=== PATIENT | female | born 1995 | race Caucasian/White ===

== ENCOUNTER 2021-09-20 09:11 | Outpatient (CLI) | payer OTHER, SELFPAY ==
[2021-09-20 10:52] LABS: Glucose 1 Hour PP 50gm Dose 105 mg/dL
== END 2021-09-20 09:12 | disposition home or self-care (01) ==
LOC: ANHLAB 09:18
PROVIDERS: Visit Provider Obstetrics & Gynecology
DX: O99.810 Abnormal glucose complicating pregnancy (principal); Z3A.00 Weeks of gestation of pregnancy not specified
CPT/HCPCS: 36415; 82947

== ENCOUNTER 2022-03-18 06:04 | Inpatient (IN) | payer OTHER, SELFPAY ==
[2022-03-18] VITALS (89 sets, daily range): BP systolic 92–142; BP diastolic 51–97; PULSE 80–141; RESP 16–18; TEMP 35.7–37.2; O2SAT 97–100; BMI 24.1
[2022-03-18] MEDS: LACTATED RINGERS 1,000 ML 125 ML IV CONT ×2 (07:14→10:18)
[2022-03-18] MEDS: OXYTOCIN 30 UNITS/NS 500 ML 30 UNITS/500 ML BAG 6 UNITS IV CONT (07:15)
--- NOTE | 2022-03-18 07:27 | P.HPUP_ITS ---
History and Physical Update Update Date/Time: 03/18/22 07:27 AROM - clear Primip induction elective., Short fe murs History and Physical has been reviewed, including an updated exam of the patient. There are NO changes in the patient's condition. Risks, benefits, and alternatives have been discussed and questions answered. Patient agrees to proceed with procedure.
--- NOTE | 2022-03-18 07:32 | LDADM ---
This patient, Es Cortes, was admitted to Labor/Delivery/Recovery 108 on 03/18/22 at 06:04. Plans for labor, pain management and were discussed with patient. Patient/family oriented to hospital policies and general routines including ID bracelet, bed and alarms, visiting hours, pain management, procedures, bathroom and other care routines, personal items, smoking policy, room service/diet and guest tray routines, security routines, and visiting hours. Patient/Family are encouraged to report perceived risks to care and to ask questions if they do not understand what they are told or what they should do. See OBIX for further documentation.
--- NOTE | 2022-03-18 07:41 | P.PNAN_ITS ---
Anes - Eval Pre Procedure Procedure: labor epidural Date/Time: 03/18/22 07:41 Surgeon: peter Preop Diagnosis: pain during labor Pre Op Diagnosis: Induction of Labor Patient Data Age: 27 Gender: F Height: Weight: Last Vital Signs Pulse 90 03/18/22 07:30 BP 116/78 03/18/22 07:30 Allergies Allergy/AdvReac Type Severity Reaction Status Date / Time No Known Allergies Allergy Verified 03/10/22 12:32 Home Medications Medication Instructions Recorded Confirmed Type ferrous sulfate 65 mg 03/10/22 History prenat.vits,santhosh,yxa-fjap-jlxku 1 tablet PO DAILY 03/10/22 03/10/22 History [ #2] Laboratory Tests 03/18/22 03/18/22 07:27 07:27 WBC Pending RBC Pending Hgb Pending Hct Pending MCV Pending MCH Pending MCHC Pending RDW Pending Plt Count Pending MPV Pending Immature Gran % (Auto) Pending Neut % (Auto) Pending Lymph % (Auto) Pending [place] % (Auto) Pending Eos % (Auto) Pending Baso % (Auto) Pending Lymph # (Auto) Pending [place] # (Auto) Pending Eos # (Auto) Pending Baso # (Auto) Pending Abs Immat Gran (auto) Pending Absolute Neuts (auto) Pending Absolute Nucleated RBC Pending Nucleated RBC % Pending RPR Pending Patient hx anesthesia problems: none Family hx anesthesia problems: none Results Review: All pre-operative results and documents have been reviewed as part of the pre-operative evaluation. [facility] Past Medical History Medical History (Updated 03/18/22 @ 07:41 by Hina Bernard CRNA) Intrauterine Family History Family History (Updated 03/10/22 @ 12:36 by Mateo Zambrano RN) Grandparent Hypothyroidism A-fib Hypertension Heart disease Acute myocardial infarction Cerebrovascular accident Mother Hypothyroidism Social History Social History Substance use: never Spiritual care concerns: No Exam Day of Procedure 03/18/22 07:41
[2022-03-18 07:44] LABS: Basophils Percent Auto 0.5 % (0.2-1.2); Eosinophils Percent Auto 0.5 % (0-4.4); Hematocrit 36.7 % (37.0-47.0); Hemoglobin 11.8 g/dL (12.0-15.0); Immature Granulocyte Absolute 0.03 K/mm3 (0.00-0.031); Immature Granulocyte Percent A 0.8 % (0-0.5); Lymphocytes Absolute Auto 0.33 K/mm3 (0.9-3.2); Lymphocytes Percent Auto 8.3 % (18.3-44.2); Mean Corpuscular HGB Conc 32.2 g/dl (32-36); Mean Corpuscular Hemoglobin 29.4 pg (26-34); Mean Corpuscular Volume 91.3 fl (80-100); Mean Platelet Volume 9.7 fl (7.4-10.4); Monocytes Absolute Auto 0.3 K/mm3 (0.1-0.6); Monocytes Percent Auto 7.8 % (2.6-8.5); Neutrophils Absolute Auto 3.3 K/mm3 (1.3-6.7); Neutrophils Percent Auto 82.1 % (45.5-73.1); Platelet Count Result 95 k/mm3 (150-375); Red Blood Count 4.02 M/mm3 (4.2-5.4); Red Cell Distribution Width 16.4 % (11.5-14.5)
[2022-03-18 11:53] LABS: Rapid Plasma Reagin Non-Reactive (NonReactive)
--- NOTE | 2022-03-18 13:01 | PM.OBPRVD ---
OB - Delivery Note Procedure Delivery date: 03/18/22 Procedure: Delivery monitor: External FHT and External Uterine Route of delivery: Laceration Description: Periurethral and Perineal - 2nd Degree Delivery repair: vicryl Quantitative Blood Loss (ml): 210 Anesthesia type: Epidural Baby Date of : 03/18/22 Time of : 12:33 Weeks of gestation at delivery: 39 Infant gender: Male presentation: vertex score one minute: 8 score five minutes: 9
[2022-03-18] MEDS: OXYTOCIN 30 UNITS/NS 500 ML 30 UNITS/500 ML BAG 125 UNITS IV CONT (13:13)
[2022-03-18] MEDS: WITCH HAZEL 40 PADS 1 PAD TOPICAL (15:24)
[2022-03-18] MEDS: BENZOCAINE 20% AER SPR (*SP) 56 GM CAN 1 SPRAY TOPICAL (15:25)
[2022-03-18] MEDS: IBUPROFEN 600 MG TABLET PO (17:35)
[2022-03-18] MEDS: ACETAMINOPHEN 325 MG TABLET 650 MG PO (23:24)
[2022-03-19] MEDS: IBUPROFEN 600 MG TABLET PO ×3 (03:25→19:43)
[2022-03-19 03:46] VITALS: BP 109/71; BP 96/56; PULSE 104; RESP 18; TEMP 37.3
[2022-03-19 04:19] LABS: Hematocrit 29.6 % (37.0-47.0); Hemoglobin 9.7 g/dL (12.0-15.0)
[2022-03-19 08:15] VITALS: BP 98/64; PULSE 96; RESP 18; TEMP 36.8; O2SAT 99
--- NOTE | 2022-03-19 08:18 | PM.OBPNVD ---
OB - PN: Subj Subjective Date/time seen: 03/19/22 08:18 Patient comments: no complaints, pain well controlled, tolerating diet and flatus present OB - PN: Obj Data Labs CBC & Chem 7: 03/19/22 03:08 Labs: Laboratory Results - last 24 hr 03/18/22 03/18/22 03/19/22 07:27 07:27 03:08 Hgb 9.7 L Hct 29.6 L RPR Non-reactive Blood Type A Positive Antibody Screen Negative OB - PN A/P Plan day: 1 Comments: Post Op LTCS - no problems, routine recovery Time Spent With Patient Time: Total time spent is greater than 50% in coordination of care (as documented) at patient's floor/unit and/or counseling patient: Exam Const: General: cooperative, healthy appearing, comfortable and no acute distress Resp: Auscultation: no crackles, no rales, no rhonchi and no wheezes Cardio: Rhythm: regular rhythm Heart sounds: no click and no murmurs GI: Inspection: non-distended Auscultation: normal bowel sounds Extrem: General: normal to inspection, no pedal edema and no calf tenderness
[2022-03-19] MEDS: ACETAMINOPHEN 325 MG TABLET 650 MG PO (08:33)
[2022-03-19] MEDS: DOCUSATE SODIUM 100 MG CAPSULE PO (08:34)
[2022-03-19] MEDS: BENZOCAINE 20% AER SPR (*SP) 56 GM CAN 1 SPRAY TOPICAL (08:34)
[2022-03-19] MEDS: WITCH HAZEL 40 PADS 1 PAD TOPICAL (08:35)
[2022-03-19 09:48] VITALS: PULSE 96; RESP 18; O2SAT 99
--- NOTE | 2022-03-19 10:30 | WPDANLDPN2 ---
Anes-Prog Note L&D Date/Time: 03/19/22 10:30 Comfortable throughout: labor and delivery Neuraxial method: epidural Epidural/Spinal procedure site: clean & non-tender Neuro status: Neuro function grossly intact. Cardiovascular status: normal Respiratory status: normal Airway patency: baseline Mental status: baseline Post-Op hydration status: normal Vital Signs: Last Vital Signs Temp 36.8 C 03/19/22 08:15 Pulse 96 03/19/22 09:48 Resp 18 03/19/22 09:48 BP 98/64 L 03/19/22 08:15 Pulse Ox 99 03/19/22 09:48 Pain score (VAS): 2 I/O: Intake & Output 03/18/22 03/19/22 03/19/22 23:59 07:59 15:59 Intake Total 240 500 Balance 240 500 Post-procedural complaints: none Patient feedback: Patient satisfied with anesthetic care.
[2022-03-19 11:33] VITALS: BP 109/60; PULSE 99; RESP 16; TEMP 37.2; O2SAT 99
--- NOTE | 2022-03-19 13:30 | PC.NURSE ---
[id number] Breast pump provided prior to shift due to ineffective feedings and mother's preference. Instructions given on cleaning, care, usage, there should be no pain, pumping schedule (8 times in 24 hours with 1-2 times at night) for milk production, collection, and storage of human milk. Parents are encouraged to record pumping schedule on the feeding sheet. Patient was assessed for correct placement, flange size, to pump for comfort and nipple stretching/stimulation for adequate milk production. Mother voiced understanding of the education shared. Reported to the primary RN.
[2022-03-19 19:40] VITALS: BP 118/80; PULSE 109; RESP 18; TEMP 37.2
[2022-03-20] MEDS: IBUPROFEN 600 MG TABLET PO (04:58)
--- NOTE | 2022-03-20 06:30 | PC.NURSE ---
PT introductions made and plan of care discussed per post , pain management, breast pumping and bottle feeding, daily care activities and pending discharge to home. PT and spouse both received such instructions and no barriers to learning identified at this time. PT received instructions per one to one discussion, mom baby care guide and demonstrations this shift. PT verbalized understanding of such care.
--- NOTE | 2022-03-20 06:41 | PM.OBPNVD ---
OB - PN: Subj Subjective Date/time seen: 03/20/22 06:41 Patient comments: no complaints and pain well controlled OB - PN: Obj Data Labs CBC & Chem 7: 03/19/22 03:08 OB - PN A/P Plan day: 2 Plan: routine care Time Spent With Patient Time: Total time spent is greater than 50% in coordination of care (as documented) at patient's floor/unit and/or counseling patient: Review of Systems Review of Systems: All systems reviewed & are unremarkable except as noted in HPI and below Exam Const: General: cooperative, healthy appearing and comfortable
--- NOTE | 2022-03-20 06:42 | PM.OBDSVD ---
DS: Admitting Diagnosis Discharge Date 03/20/22 Admitting Diagnosis IUGR, IOL OB - DS: Summary OB Procedures : None OB Procedures Intrapartum: Spontaneous Vag Delivery OB Procedures: : None Time Spent with Patient Time attestation: Total time spent providing and/or coordinating discharge services: Discharge Plan Discharge Attending physician on discharge: Ginger Acuña Discharging Clinician: Gail Coy Patient Disposition: Home, Self-Care Activity: pelvic rest Diet: regular Patient Instructions: Antibiotic Form Stand Alone Forms: General Discharge Information Follow-up/Referrals: Ginger Acuña MD [Physician] - 4 Weeks Discharge Medications: Continued ferrous sulfate [Iron (ferrous sulfate)] 325 mg (65 mg iron) Tablet 65 mg PO BID RF: 0 #2 Tablet 1 tablet PO DAILY RF: 0 Date of admission: 03/18/22 06:04 Primary Care Provider: Omar,Garrett Admitting Provider: Ginger Acuña Attending physician on admission: Ginger Acuña Condition: Stable
[2022-03-20 08:15] VITALS: BP 112/65; PULSE 99; RESP 18; TEMP 36.4; O2SAT 99
[2022-03-20] MEDS: ACETAMINOPHEN 325 MG TABLET 650 MG PO (09:44)
[2022-03-20] MEDS: DOCUSATE SODIUM 100 MG CAPSULE PO (09:45)
[2022-03-20] MEDS: POLYSACCHARIDE IRON COMPLEX 150 MG CAPSULE PO (09:45)
[2022-03-20] MEDS: MULTIVIT/MIN/PREN/FOL AC/IRON TABLET 1 TAB PO (09:45)
--- NOTE | 2022-03-20 11:30 | PC.NURSE ---
PT received discharge instructions per protocol and verbalized understanding of such care
--- NOTE | 2022-03-20 12:00 | PC.NURSE ---
PT discharged to home ambulatory accompanied by spouse and to waiting car. follow up appts confirmed
--- NOTE | 2022-03-20 12:00 | PC.NURSE ---
PT discharged to home ambulatory accompanied by spouse and to waiting car. follow up appts confirmed
--- NOTE | 2022-03-20 12:00 | PC.NURSE ---
Infant discharged to home via safety seat accompanied by both parents and taken to waiting car. Follow up appts confirmed
--- NOTE | 2022-03-20 12:29 | PC.NURSE ---
[phone] Mother led the conversation with her experience and plan to feed her so far and her ability to pump and feed her . Mother is pumping 20 mls at the last pumping session. Reminded parents to use good handwashing technique to prevent infection. Mother is feeding appropriately for growth of and understands stimulating to eat if needed. Infant has had appropriate feedings in the last 24 hours meets the outcomes for weight, output and jaundice at this time. Mother states she is confident to continue pumping and bottle feeding her at home or when to call for assistance and denies any additional assistance or education at this time. Reviewed patient's Spectra pump and went over basics and encouraged reviewing the website for her personal pump, there should be no pain, flange proper fitting reviewed. Reinforced understanding of milk production, transition of milk, signs of adequate intake, prevention/relief of engorgement, responsive after visualizing feeding cues, pumping 8 times in 24 hours with 1-2 times at night, community resources, medication information reviewed per [employer] and when to call a provider using the resource of the mom and baby guide/[facility] website. Mother voiced understanding of the education shared. Reported to the primary RN.
[2022-03-21 08:50] VITALS: BP 117/78; PULSE 92; RESP 20; TEMP 36.9; O2SAT 98
== END 2022-03-20 12:00 | disposition home or self-care (01) | DRG 807 ==
LOC: ANHLDR 12:47 → ANHOB2 19:27
PROVIDERS: Admitting Provider Obstetrics & Gynecology; PCP Internal Medicine; Visit Provider Obstetrics & Gynecology
DX: O36.5930 Maternal care for other known or suspected poor fetal growth, third trimester, not applicable or unspecified (principal); Z37.0 Single live birth; O76 Abnormality in fetal heart rate and rhythm complicating labor and delivery; O32.6XX0 Maternal care for compound presentation, not applicable or unspecified; O70.1 Second degree perineal laceration during delivery; Z3A.39 39 weeks gestation of pregnancy
CPT/HCPCS: 36415; 85014; 85018; 85025; 86592; 86850; 86900; 86901; A9270; J2590; J2795; J7120

== ENCOUNTER 2023-11-24 04:54 | Inpatient (IN) | payer OTHER, SELFPAY ==
[2023-11-24] VITALS (124 sets, daily range): BP systolic 81–127; BP diastolic 46–83; PULSE 66–151; RESP 16–18; TEMP 36.3–37.1; O2SAT 97–100; BMI 26.7
--- NOTE | 2023-11-24 05:18 | LDADM ---
This patient, Es Cortes, was admitted to Labor/Delivery/Recovery 103 on 11/24/23 at 04:54. Plans for labor, pain management and were discussed with patient. Patient/family oriented to hospital policies and general routines including ID bracelet, bed and alarms, visiting hours, pain management, procedures, bathroom and other care routines, personal items, smoking policy, room service/diet and guest tray routines, security routines, and visiting hours. Patient/Family are encouraged to report perceived risks to care and to ask questions if they do not understand what they are told or what they should do. See OBIX for further documentation.
[2023-11-24] MEDS: LACTATED RINGERS 1,000 ML 125 ML IV CONT ×3 (05:32→11:13)
[2023-11-24 05:33] LABS: Basophils Percent Auto 0.4 % (0.2-1.2); Eosinophils Absolute Auto 0.2 K/mm3 (0-0.3); Eosinophils Percent Auto 2.1 % (0-4.4); Hematocrit 31.2 % (37.0-47.0); Hemoglobin 9.6 g/dL (12.0-15.0); Immature Granulocyte Absolute 0.08 K/mm3 (0.00-0.031); Lymphocytes Absolute Auto 1.72 K/mm3 (0.9-3.2); Lymphocytes Percent Auto 21.3 % (18.3-44.2); Mean Corpuscular HGB Conc 30.8 g/dl (32-36); Mean Corpuscular Hemoglobin 26.3 pg (26-34); Mean Corpuscular Volume 85.5 fl (80-100); Mean Platelet Volume 10.1 fl (7.4-10.4); Monocytes Absolute Auto 0.6 K/mm3 (0.1-0.6); Monocytes Percent Auto 6.9 % (2.6-8.5); Neutrophils Absolute Auto 5.5 K/mm3 (1.3-6.7); Neutrophils Percent Auto 68.3 % (45.5-73.1); Platelet Count Result 234 k/mm3 (150-375); Red Blood Count 3.65 M/mm3 (4.2-5.4); Red Cell Distribution Width 15.2 % (11.5-14.5); White Blood Count 8.1 K/mm3 (4.5-10.0)
[2023-11-24] MEDS: OXYTOCIN 30 UNITS/NS 500 ML 30 UNITS/500 ML BAG IV CONT (05:33)
--- NOTE | 2023-11-24 06:23 | WPDANESEPP ---
Anes - Eval Pre Procedure Procedure: labor epidural Date/Time: 11/24/23 06:23 Surgeon: peter Preop Diagnosis: pain during labor Pre Op Diagnosis: IOL Patient Data Age: 28 Gender: F Height: Weight: Last Vital Signs Pulse 105 H 11/24/23 06:00 BP 107/68 11/24/23 06:00 O2 Del Method Room Air 11/24/23 05:15 Allergies Allergy/AdvReac Type Severity Reaction Status Date / Time No Known Allergies Allergy Verified 11/24/23 05:36 Home Medications Medication Instructions Recorded Confirmed Type ferrous sulfate 325 mg (65 mg 65 mg PO BID 03/10/22 11/05/23 History iron) tablet (Iron (ferrous sulfate)) prenat.vits,santhosh,hak-ynze-pyhfh 1 tablet PO DAILY 03/10/22 11/24/23 History Laboratory Tests 11/24/23 05:05 WBC 8.1 K/mm3 (4.5-10.0) RBC 3.65 L M/mm3 (4.2-5.4) Hgb 9.6 L g/dL (12.0-15.0) Hct 31.2 L % (37.0-47.0) MCV 85.5 fl (80-100) MCH 26.3 pg (26-34) MCHC 30.8 L g/dl (32-36) RDW 15.2 H % (11.5-14.5) Plt Count 234 D k/mm3 (150-375) MPV 10.1 fl (7.4-10.4) Immature Gran % (Auto) 1.0 H % (0-0.5) Neut % (Auto) 68.3 % (45.5-73.1) Lymph % (Auto) 21.3 % (18.3-44.2) [place] % (Auto) 6.9 % (2.6-8.5) Eos % (Auto) 2.1 % (0-4.4) Baso % (Auto) 0.4 % (0.2-1.2) Lymph # (Auto) 1.72 K/mm3 (0.9-3.2) [place] # (Auto) 0.6 K/mm3 (0.1-0.6) Eos # (Auto) 0.2 K/mm3 (0-0.3) Baso # (Auto) 0.0 K/mm3 (0.0-0.1) Abs Immat Gran (auto) 0.08 H K/mm3 (0.00-0.031) Absolute Neuts (auto) 5.5 K/mm3 (1.3-6.7) Absolute Nucleated RBC 0.0 K/mm3 (0.0-0.012) Nucleated RBC % 0.0 % (0.0-0.2) RPR Pending Patient hx anesthesia problems: none Family hx anesthesia problems: none Results Review: All pre-operative results and documents have been reviewed as part of the pre-operative evaluation. [facility] Past Medical History Medical History (Updated 03/18/22 @ 07:41 by Hina Bernard CRNA) Intrauterine Family History Family History (Updated 11/05/23 @ 15:35 by Arin Freeman RN) Grandparent Acute myocardial infarction A-fib Heart disease Hypothyroidism Hypertension Cerebrovascular accident Mother Hypothyroidism Hypertension Father Hypertension Social History Social History Smoking status: Never smoker Second hand tobacco smoke exposure: No Substance use: never Do You Feel Safe in your Home?: Yes Lack of Transportation: No Lack of Food: Never True Current Housing: I Have Housing Concerned About Future Housing: No Difficulty Paying Gas/Electric Bills: No Difficulty Paying for Meds: No Currently Unemployed: No Education: Master's Degree or Higher Difficulty w/ Childcare or Family Care: No Spiritual care concerns: No Exam Day of Procedure 11/24/23 06:23
[2023-11-24] MEDS: CALCIUM CARBONATE (TUMS) 500 MG (200 MG ELEMENTAL) PO (08:10)
--- NOTE | 2023-11-24 08:38 | WPDOBADMIT ---
Obstetrics - Admit Note Admission Note: record reviewed. No pertinent additions to the history and/or any subsequent changes in the physical findings that are not consistent with the expected course of the were found. Additions to the history and/or subsequent changes in the physical findings follow. IOL /-2 large amount of clear, odorless fluid, anticipate vaginal delivery
[2023-11-24 09:08] LABS: Rapid Plasma Reagin Non-Reactive (NonReactive)
[2023-11-24] MEDS: FAMOTIDINE 20 MG/2 ML VIAL IV PUSH (12:32)
--- NOTE | 2023-11-24 14:13 | PM.OBPRVD ---
OB - Vaginal Delivery Note Procedure Delivery date: 11/24/23 Induction method: AROM and Per Pitocin Protocol Route of delivery: Episiotomy description: None Laceration Description: Perineal - 2nd Degree Delivery repair: vicryl Specimen: No Quantitative Blood Loss (ml): 400 Anesthesia type: Epidural Disposition: Floor Complications: No immediate complications [place] Baby Date of : 11/24/23 Time of : 13:58 Weeks of gestation at delivery: 40 Infant gender: Female presentation: vertex position: Right Occiput Anterior Placenta delivery description: Spontaneous Cord Vessel Description: 3 Vessels, Nuchal Cord, Loose and Reduced score one minute: 8 score five minutes: 9 Narrative: mother and baby skin to skin, in stable condition
[2023-11-24] MEDS: OXYTOCIN 30 UNITS/NS 500 ML 30 UNITS/500 ML BAG 125 UNITS IV CONT (14:48)
[2023-11-24] MEDS: COSYNTROPIN 0.25 MG/ML VIAL 1 MG IV PUSH (14:54)
[2023-11-24] MEDS: ACETAMINOPHEN 325 MG TABLET 650 MG PO (16:00)
[2023-11-24] MEDS: WITCH HAZEL 40 PADS 1 PAD TOPICAL (16:20)
[2023-11-24] MEDS: BENZOCAINE 20% AER SPR (*SP) 56 GM CAN 1 SPRAY TOPICAL (16:20)
--- NOTE | 2023-11-24 16:38 | OBPPTRN ---
Patient transferred to post room #284 via Wheelchair. Support person present. Oriented to unit, room, information board, rooming in, admission packet and security measures. Patient verbalizes understanding.
[2023-11-24] MEDS: POLYSACCHARIDE IRON COMPLEX 150 MG CAPSULE PO (17:38)
[2023-11-24] MEDS: DOCUSATE SODIUM 100 MG CAPSULE PO (17:38)
[2023-11-24] MEDS: IBUPROFEN 600 MG TABLET PO (18:45)
[2023-11-25] MEDS: ACETAMINOPHEN 325 MG TABLET 650 MG PO ×3 (00:30→22:02)
[2023-11-25 03:45] VITALS: BP 101/63; PULSE 88; RESP 16; TEMP 36.3; O2SAT 100
[2023-11-25 04:39] LABS: Hematocrit 23.8 % (37.0-47.0); Hemoglobin 7.3 g/dL (12.0-15.0)
[2023-11-25] MEDS: IBUPROFEN 600 MG TABLET PO ×2 (05:57→16:40)
[2023-11-25 08:00] VITALS: BP 111/60; PULSE 85; RESP 17; TEMP 36.5; O2SAT 99
--- NOTE | 2023-11-25 08:08 | PM.OBPNVD ---
OB - PN: Subj Subjective Date/time seen: 11/25/23 08:08 Patient comments: no complaints, pain well controlled, incisional pain, tolerating diet and flatus present OB - PN: Obj Data Labs 11/25/23 03:45 Labs: Laboratory Results - last 24 hr 11/24/23 11/25/23 05:05 03:45 Hgb 7.3 L Hct 23.8 L RPR Non-reactive OB - PN A/P Plan day: 1 Plan: routine care Comments: No problems, routine care Time Spent With Patient Time: Total time spent is greater than 50% in coordination of care (as documented) at patient's floor/unit and/or counseling patient: Exam Const: General: comfortable, no acute distress and alert Resp: Effort & Inspection: normal respiratory effort Auscultation: no crackles, no rales and no rhonchi Cardio: Rate: regular rate Heart sounds: no click, no murmurs and no rubs GI: Inspection: non-distended GI Palp: No Tenderness to palpation present (GI) Auscultation: normal bowel sounds Other: Incision - CDI Extrem: General: normal to inspection, no pedal edema and no calf tenderness
--- NOTE | 2023-11-25 09:15 | WPDANLDPN2 ---
Anes-Prog Note L&D Date/Time: 11/25/23 09:15 Comfortable throughout: labor and delivery Neuraxial method: epidural Epidural/Spinal procedure site: clean & non-tender Neuro status: Neuro function grossly intact. Cardiovascular status: normal Respiratory status: normal Airway patency: baseline Mental status: baseline Post-Op hydration status: normal Vital Signs: Last Vital Signs Temp 36.3 C L 11/25/23 03:45 Pulse 88 11/25/23 03:45 Resp 16 11/25/23 03:45 BP 101/63 11/25/23 03:45 Pulse Ox 100 11/25/23 03:45 O2 Del Method Room Air 11/25/23 03:45 Pain score (VAS): 10 I/O: Intake & Output 11/24/23 11/25/23 11/25/23 23:59 07:59 15:59 Intake Total 240 Balance 240 Post-procedural complaints: none Patient feedback: Patient satisfied with anesthetic care.
[2023-11-25] MEDS: POLYSACCHARIDE IRON COMPLEX 150 MG CAPSULE PO ×2 (09:54→16:40)
[2023-11-25] MEDS: MULTIVIT/MIN/PREN/FOL AC/IRON TABLET 1 TAB PO (09:54)
[2023-11-25] MEDS: DOCUSATE SODIUM 100 MG CAPSULE PO ×2 (09:54→16:40)
[2023-11-25 19:35] VITALS: BP 105/66; PULSE 79; RESP 18; TEMP 36.4
[2023-11-26] MEDS: IBUPROFEN 600 MG TABLET PO ×2 (05:30→11:32)
--- NOTE | 2023-11-26 07:37 | PM.OBPNVD ---
OB - PN: Subj Subjective Date/time seen: 11/26/23 07:37 Interval history: pp day 2 headache, anesthesia to come evaluate anemia, plan IV venofer prior to d/c OB - PN: Obj Data Labs 11/25/23 03:45 OB - PN A/P Plan day: 2 Plan: routine care and discharge home Comments: iron at home Time Spent With Patient Time: Total time spent is greater than 50% in coordination of care (as documented) at patient's floor/unit and/or counseling patient: Review of Systems Review of Systems: All systems reviewed & are unremarkable except as noted in HPI and below Exam Const: General: cooperative, healthy appearing and comfortable Resp: Effort & Inspection: normal respiratory effort Cardio: Rate: regular rate Skin: General skin exam: normal color Neuro: General: patient oriented x3 Psych: Appearance: grossly normal
--- NOTE | 2023-11-26 07:40 | PM.OBDSVD ---
DS: Admitting Diagnosis Discharge Date 11/26/23 Admitting Diagnosis IOL DS: Discharge Diagnosis Discharge Diagnosis (1) Vaginal delivery: Code(s): O80 - Encounter for full-term uncomplicated delivery Status: Acute OB - DS: Summary OB Procedures : None OB Procedures Intrapartum: Spontaneous Vag Delivery OB Procedures: : None Peripartum Data Laceration Description: Perineal - 2nd Degree Episiotomy description: None Time Spent with Patient Time attestation: Total time spent providing and/or coordinating discharge services: Discharge Plan Discharge Attending physician on discharge: Ginger Acuña Discharging Clinician: Gail Coy Patient Disposition: Home, Self-Care Activity: pelvic rest Diet: regular Patient Instructions: Antibiotic Form Stand Alone Forms: General Discharge Information Follow-up/Referrals: Gail Coy CNM [Certified Nurse Lieutenant Shift Supervisor] - 4 Weeks Discharge Medications: New ibuprofen 600 mg Tablet 600 mg PO Q6H PRN (Reason: Cramping) Qty: 30 0RF polysaccharide iron complex 150 mg iron Capsule 150 mg PO BIDWM Qty: 60 0RF Continued prenat.vits,santhosh,qtg-uoiz-wqctr Tablet 1 tablet PO DAILY Discontinued ferrous sulfate [Iron (ferrous sulfate)] 325 mg (65 mg iron) Tablet 65 mg PO BID Date of admission: 11/24/23 04:54 Primary Care Provider: Omar,Garrett Admitting Provider: Ginger Acuña Attending physician on admission: Ginger Acuña Condition: Stable
[2023-11-26 08:00] VITALS: PULSE 94; RESP 18; O2SAT 100
[2023-11-26 08:05] VITALS: BP 114/74; PULSE 94; RESP 18; TEMP 37.1; O2SAT 100
[2023-11-26] MEDS: DOCUSATE SODIUM 100 MG CAPSULE PO (08:09)
[2023-11-26] MEDS: MULTIVIT/MIN/PREN/FOL AC/IRON TABLET 1 TAB PO (08:09)
[2023-11-26] MEDS: POLYSACCHARIDE IRON COMPLEX 150 MG CAPSULE PO (08:09)
[2023-11-26] MEDS: ACETAMINOPHEN 325 MG TABLET 650 MG PO (08:12)
[2023-11-26] MEDS: IRON SUCROSE COMPLEX 400 MG in SODIUM CHLORIDE 0.9% IV 250 ML 108 MG IVPB (09:00)
--- NOTE | 2023-11-26 14:08 | WPDANESEBPP ---
Anes - Epidural Blood Patch PN Date/Time: 11/26/23 14:08 Consent: I have discussed with the patient/family/POA, the rationale of a lumbar epidural autologous blood patch for the treatment of post-dural puncture headache (spinal headache), including associated potential risks, benefits, complications and side effects. I have also discussed more conservative treatment options such as intravenous hydration, caffeine and non-prescription analgesics. The patient/family/POA, understand(s) and wish(es) to proceed with epidural autologous blood patch as treatment for the patient's post-dural puncture headache. Time-Out: A pre-procedural Time-Out was completed immediately before starting the procedure and confirmed: Patient Identification, Site, Procedure, Patient Position and the Availability of Requisite Equipment. Clinical Indications: PDPH Epidural Insertion Note Patient position: sitting Skin prep: chlorhexidine and sterile drape Needle: 18 gauge Tuohy-Schliff Technique: loss of resistance Skin anesthesia: lidocaine 1% Observations: tolerated well Complications: none
--- NOTE | 2023-11-26 14:50 | PC.NURSE ---
Patient viewed the discharge video Mother & Baby Care, The First Two Weeks . Patient was given the opportunity and encouraged to ask questions. Patient verbalized understanding of information shared and has been given the mother/baby guide for home reference.
--- NOTE | 2023-11-26 14:53 | PC.NURSE ---
Patient's discharge delayed due to pt needing blood patch. Anesthesia here to do blood patch at 1350. Per Anesthesia, pt must remain flat for 1.5-2 hrs. after procedure before discharging home
--- NOTE | 2023-11-26 15:55 | PC.NURSE ---
[id number] Mother led the conversation with her experience so far, plan to feed her , and her ability to pump to bottle feed her . Reminded mother to use good handwashing technique to prevent infection. Mother is feeding appropriately for growth of infant and understands stimulating to eat if needed. has had appropriate feedings in the last 24 hours meets the outcomes for weight, output, blood sugar and jaundice at this time. Reinforced understanding of milk production, transition of milk, signs of adequate intake, transition of stool, prevention/relief of engorgement, plugged ducts, mastitis, responsive feeding, community resources, and when to call a provider and resources using the feeding sheet along with the mom and baby guide. Mother voiced understanding of the education shared.
[2023-11-27 11:27] VITALS: BP 117/70; PULSE 90; RESP 18; TEMP 36.6; O2SAT 100
== END 2023-11-26 17:07 | disposition home or self-care (01) | DRG 807 ==
LOC: ANHLDR 04:58 → ANHOB2 17:03
PROVIDERS: Admitting Provider Obstetrics & Gynecology; PCP Internal Medicine; Referring Provider Advanced Practice Midwife; Visit Provider Obstetrics & Gynecology
DX: O69.81X0 Labor and delivery complicated by cord around neck, without compression, not applicable or unspecified (principal); Z37.0 Single live birth; Z3A.39 39 weeks gestation of pregnancy; O70.1 Second degree perineal laceration during delivery; O89.4 Spinal and epidural anesthesia-induced headache during the puerperium
CPT/HCPCS: 36415; 85014; 85018; 85025; 86592; 86850; 86900; 86901; A9270; J0834; J1756; J2590; J2795; J7050; J7120

== ENCOUNTER 2023-11-27 11:40 | Outpatient (CLI) | payer OTHER, SELFPAY ==
[2023-11-27 12:02] VITALS: BP 132/79; PULSE 77; RESP 20; TEMP 36.4; O2SAT 98
[2023-11-27 12:03] VITALS: BP 132/79; PULSE 77; PULSE 78; O2SAT 98
--- NOTE | 2023-11-27 12:07 | WPDANLDPN2 ---
Anes-Prog Note L&D Date/Time: 11/27/23 12:07 Neuro status: Neuro function grossly intact. Cardiovascular status: normal Respiratory status: normal Airway patency: baseline Mental status: baseline Post-Op hydration status: normal Vital Signs: Last Vital Signs Pulse 77 11/27/23 12:03 BP 132/79 11/27/23 12:03 Pulse Ox 98 11/27/23 12:03 Pain score (VAS): 1 Patient feedback: patient came to OB with a positional headache post epidural and blood patch. Patient stated blood patch did not help yesterday and experienced a headache on way home post blood patch. Patient is anemic and has not been taking fiorcet or drinking fluids. discussed options of conservative management vs another blood patch with patient. Discussed with Dr. ahn and he stated to give patient option of conservative vs blood patch today. Patient chose to try conservative management and was educated to come back if headache or symptoms did not improve or got worse. Patient agreed and wished to try conservative management for treatment. Patient satisfied with anesthetic care.
--- NOTE | 2023-11-27 12:20 | PC.NURSE ---
Sidney Matos CRNA evaluated pt and decision was made to not repeat a blood patch at this time. Pt had a blood patch on 11/26/23 before she was discharged, but on her car ride home from the hospital her headache returned. Pt has decided to try conservative management with drinking caffeinated beverages and Dr. Acuña calling in RX for Fioricet. Pt instructed to return if the headache worsens or if she decides she wants to repeat the blood patch; pt verbalizes understanding.
== END 2023-11-27 12:30 | disposition home or self-care (01) ==
LOC: ANHOBOP 11:51 → ANHOBPP 11:52
PROVIDERS: PCP Internal Medicine; Visit Provider Advanced Practice Midwife
DX: O13.9 Gestational [pregnancy-induced] hypertension without significant proteinuria, unspecified trimester (principal); Z3A.00 Weeks of gestation of pregnancy not specified
CPT/HCPCS: 99199